=== PATIENT | male | born 2000 | race Native Hawaiian/Other Pacific Islander ===

== ENCOUNTER 2025-02-02 14:45 | Emergency (ER) | payer OTHER, SELFPAY ==
[2025-02-02 14:47] VITALS: BP 163/91; PULSE 113; RESP 16; TEMP 36.8; O2SAT 100; BMI 25.7
[2025-02-02 15:15] LABS: Basophils # 0.1 10^3/uL (0.0-0.1); Basophils % 0.8 %; Eosinophils # 0.1 10^3/uL (0.0-0.8); Eosinophils % 0.9 %; Hematocrit 48.6 % (37-53); Lymphocytes # 2.3 10^3/uL (0.8-4.8); Lymphocytes % 22.1 %; Mean Corpuscular HGB Conc 36.6 g/dL (30-55); Mean Corpuscular Hemoglobin 33.3 pg (27-33); Mean Platelet Volume 10.7 fL (7.4-10.4); Monocytes # 0.6 10^3/uL (0.2-0.9); Monocytes % 5.2 %; Neutrophils # 7.38 10^3/uL (1.8-7.7); Neutrophils % 70.1 %; Nucleated Red Blood Cells % 0 %; Platelet Count 299 10^3/cmm (157-399); Red Blood Count 5.34 10^6/uL (3.85-5.65); Red Cell Distribution Width 11.9 % (12.1-15.1); White Blood Count 10.52 10^3/uL (3.29-11.43)
--- NOTE | 2025-02-02 15:29 | CTR_ITS ---
PROCEDURE INFORMATION: Exam: CT Abdomen And Pelvis With Contrast Exam date and time: 02/02/2025 4:01 PM Age: 24 years old Clinical indication: Mass, lump, or swelling and vomiting; Generalized; Additional info: Abd pain TECHNIQUE: Imaging protocol: Computed tomography of the abdomen and pelvis with contrast. Radiation optimization: All CT scans at this facility use at least one of these dose optimization techniques: automated exposure control; mA and/or kV adjustment per patient size (includes targeted exams where dose is matched to clinical indication); or iterative reconstruction. Contrast material: OMNI 350; Contrast volume: 100 ml; Contrast route: INTRAVENOUS (IV); COMPARISON: No relevant prior studies available. RADIATION DOSE METRICS: Total DLP (mGy-cm): 516.11 FINDINGS: Lungs: Lung bases are clear. Liver: Normal. No mass. Gallbladder and biliary ducts: Normal. No calcified stones. No ductal dilation. Pancreas: Normal. No ductal dilation. Spleen: Normal. No splenomegaly. Adrenal glands: Normal. No mass. Kidneys and ureters: Presumed contrast within the bilateral renal collecting systems. No definitive nephrolithiasis. No evidence of hydronephrosis or obstructing ureteral calculus. The kidneys enhance normally. Stomach and bowel: No small or large bowel obstruction. Mild constipation. Appendix: The appendix is not definitively visualized however there are no secondary signs to suggest acute appendicitis. Intraperitoneal space: No intraperitoneal free air or fluid. Vasculature: The portal vein is patent. Lymph nodes: Unremarkable. No enlarged lymph nodes. Urinary bladder: Unremarkable as visualized. Reproductive: Unremarkable as visualized. Bones/joints: Unremarkable. No acute fracture. Soft tissues: Small fat containing umbilical hernia. CT/CT abdomen pelvis w con* [id number] IMPRESSION: No acute abnormality in the abdomen and pelvis.
--- NOTE | 2025-02-02 15:30 | ED_ITS ---
HPI - Nausea/Vomiting/Diarrhea 2 General: Chief complaint: Nausea/Vomiting/Diarrhea Stated complaint: abd pain, n/v/d/f Time Seen by Provider: 02/02/25 15:01 Source: patient Mode of arrival: ambulatory Limitations: no limitations History of Present Illness: 24-year-old male states that over the la st 2 to 3 weeks he has been having increasing abdominal pain as well as been having some vomiting diarrhea since he had had labs drawn and they were normal and was scheduled for outpatient ultrasound of his gallbladder but had worsening pain today states pain is diffuse in nature rates an 8 out of 10 denies any worse improved factors Associated nausea: Yes Associated symtoms: Reports nausea; Denies chest pain, dysuria or headache(s) Related Data Previous Rx's ?Medication ?Instructions ?Recorded dicyclomine 20 mg tablet 20 mg PO TID PRN abdominal p ain 02/02/25 #20 tabs ondansetron 4 mg disintegrating 4 mg PO Q6H PRN nausea and 02/02/25 tablet vomiting #14 tabs Allergies Allergy/AdvReac Type Severity Reaction Status Date / Time No Known Allergies Allergy Verified 02/02/25 14:54 Review of Systems 2 Const: Denies: fever(s), chills, body aches or change in appetite ENMT: Denies: throat pain or dental pain Card: Denies: chest pain Resp: Denies: dyspnea GI: Reports: abdominal pain, nausea, vomiting and diarrhea : Denies: dysuria Musc: Denies: neck pain or back pain Skin/Breast: Denies: rash Neuro: Denies: headache(s) Physical Exam 2 Const: COMMON NORMALS: no acute distress, patient oriented x3 and healthy appearing HENMT: COMMON NORMALS: normocephalic and atraumatic HEAD & SCALP: n ormocephalic and atraumatic Neck/C-Spine: COMMON NORMALS: full ROM and supple Chest: COMMONS NORMALS: normal inspection of the chest Resp: COMMON NORMALS: normal respiratory effort, No retractions, No use of accessory muscles and clear to auscultation bilaterally AUSCULTATION: clear to auscultation bilaterally Cardio: COMMON NORMALS: regular rate, regular rhythm and No murmurs present (Cardio) RATE: regular rate RHYTHM: regular rhythm GI: COMMON NORMALS: Normal to inspection, nondistended, normoactive bowel sounds present, Soft to palpation and no masses PALPATION: Yes Soft to palpation OTHER: diffuse tenderness Extremity: COMMON NORMALS: normal to inspection and full ROM Neuro: COMMON NORMALS: patient oriented x3, moves all extremities and no focal motor deficits Psych: COMMON NORMALS: mental status grossly normal, Normal thought process present and cooperative THOUGHT PROCESS: Normal thought process present Skin: COMMON NORMALS: no rashes or lesions noted and no wounds GENERAL SKIN EXAM: no rashes or lesions noted Course 2 Vital Signs: Vital signs: Vital Signs Temperature 98.3 F 02/02/25 14:47 Pulse Rate 113 H 02/02/25 14:47 Respiratory Rate 14 02/02/25 16:45 Blood Pressure 127/77 02/02/25 16:45 Pulse Oximetry 97 02/02/25 16:45 Oxygen Delivery Me thod Room Air 02/02/25 16:45 MDM - Nausea/Vomiting/Diarrhea Medical Decision Making Patient presents with abdominal pain nausea vomiting blood work CT scan are normal he feels improved here after fluids and meds will prescribe him Bentyl along with Zofran he has follow-up with PCP and return if worsening. Medical Records I reviewed the patient's medical records. Lab Data I reviewed the patient's lab results. 02/02/25 15:09 02/02/25 15:09 Radiology Impressions Abdomen/Pelvis CT 02/02/25 15:29 IMPRESSION: No acute abnormality in the abdomen and pelvis. Laboratory Results WBC 10.52 10^3/uL (3.29-11.43) 02/02/25 15:09 RBC 5.34 10^6/uL (3.85-5.65) 02/02/25 15:09 Hgb 17.80 g/dL (11.27-16.99) H 02/02/25 15:09 Hct 48.6 % (37-53) 02/02/25 15:09 MCV 91.0 fl (82-101) 02/02/25 15:09 MCH 33.3 pg (27-33) H 02/02/25 15:09 MCHC 36.6 g/dL (30-55) 02/02/25 15:09 RDW 11.9 % (12.1-15.1) L 02/02/25 15:09 Plt Count 299 10^3/cmm (157-399) 02/02/25 15:09 MPV 10.7 fL (7.4-10.4) H 02/02/25 15:09 Neut % (Auto) 70.1 % 02/02/25 15:09 Lymph % (Auto) 22.1 % 02/02/25 15:09 [place] % (Auto) 5.2 % 02/02/25 15:09 Eos % (Auto) 0.9 % 02/02/25 15:09 Baso % (Auto) 0.8 % 02/02/25 15:09 Neut # (Auto) 7.38 10^3/uL (1.8-7.7) 02/02/25 15:09 Lymph # (Auto) 2.3 10^3/uL (0.8-4.8) 02/02/25 15:09 [place] # (Auto) 0.6 10^3/uL (0.2-0.9) 02/02/25 15:09 Eos # (Auto) 0.1 10^3/uL (0.0-0.8) 02/02/25 15:09 Baso # (Auto) 0.1 10^3/uL (0.0-0.1) 02/02/25 15:09 Nucleated RBC % (auto) 0 % 02/02/25 15:09 Nucleated RBCs # 0.0 /100WBC 02/02/25 15:09 Sodium 139 mmol/L (136-145) 02/02/25 15:09 Potassium 3.4 mmol/L (3.5-5.1) L 02/02/25 15:09 Chloride 104 mmol/L (98-107) 02/02/25 15:09 Carbon Dioxide 17 mmol/L (22-29) L 02/02/25 15:09 Anion Gap 21.4 (5-19) H 02/02/25 15:09 BUN 16 mg/dL (6-20) 02/02/25 15:09 Creatinine 1.0 mg/dL (0.7-1.2) 02/02/25 15:09 GFR Calculation 91.8 mL/min (90-130) 02/02/25 15:09 Glucose 220 mg/dL (65-115) H 02/02/25 15:09 Calculated Osmolality 296 mOsm/kg (285-295) H 02/02/25 15:09 Calcium 9.6 mg/dL (8.5-10.5) 02/02/25 15:09 Total Bilirubin 0.7 mg/dL (0.15-1.2) 02/02/25 15:09 AST 14 U/L (0-40) 02/02/25 15:09 ALT 19 U/L (0-41) 02/02/25 15:09 Alkaline Phosphatase 75 U/L (40-130) 02/02/25 15:09 Total Protein 7.2 g/dL (6.6-8.7) 02/02/25 15:09 Albumin 4.8 g/dL (3.5-5.2) 02/02/25 15:09 Globulin 2.4 g/dL (1.3-4.6) 02/02/25 15:09 Lipase 46 U/L (13-60) 02/02/25 15:09 Urine Color Yellow (Yellow) 02/02/25 15:43 Urine Appearance Clear (CLEAR) 02/02/25 15:43 Urine pH 7.5 (5-7) 02/02/25 15:43 Ur Specific [place] 1.019 (1.005-1.030) 02/02/25 15:43 Urine Protein Negative (Negative) 02/02/25 15:43 Urine Glucose (UA) 3+ (Normal) H 02/02/25 15:43 Urine Ketones 1+ (Negative) H 02/02/25 15:43 Urine Blood Negative (Negative) 02/02/25 15:43 Urine Nitrate Negative (Negative) 02/02/25 15:43 Urine Bilirubin Negative (Negative) 02/02/25 15:43 Urine Urobilinogen 1.0 mg/dL (Negative) 02/02/25 15:43 Ur Leukocyte Esterase Negative (Negative) 02/02/25 15:43 Urine RBC 0-2 /hpf (0-2) 02/02/25 15:43 Urine WBC 0-5 /hpf (0-5) 02/02/25 15:43 Ur Squamous Epith Cells 0-5 /hpf (0-5) 02/02/25 15:43 Amorphous Sediment Not Reportable 02/02/25 15:43 Urine Bacteria None seen /hpf (NONE) 02/02/25 15:43 Hyaline Casts 0-4 /lpf H 02/02/25 15:43 All radiology interpretation(s) finalized by discharge Discharge Plan Discharge Patient Disposition: Home Clinical Impression: Vomiting, Abdominal pain Condition: Stable Prescriptions: New ondansetron 4 mg tablet,disintegrating 4 mg PO Q6H PRN (Reason: nausea and vomiting) Qty: 14 0RF dicyclomine 20 mg tablet 20 mg PO TID PRN (Reason: abdominal pain) Qty: 20 0RF Discharge Orders: Discharge ED (Routine); Ordered 02/02/25 Ordered By: Kiana Baxter Discharge Diet: Advance as tolerated Discharge Activity: Resume usual activity Patient Instructions: Acute Nausea and Vomiting (ED), Abdominal Pain (ED) Print Language: Palauan Coding Level of Care Code ED Cut Order Hand for Radha Gonzalez
[2025-02-02 15:32] LABS: Albumin Level 4.8 g/dL (3.5-5.2); Alkaline Phosphatase 75 U/L (40-130); Anion Gap 21.4 (5-19); Blood Urea Nitrogen 16 mg/dL (6-20); Calcium 9.6 mg/dL (8.5-10.5); Carbon Dioxide 17 mmol/L (22-29); Chloride 104 mmol/L (98-107); Creatinine Clr Calc Pharmacy 126.8686; Globulin 2.4 g/dL (1.3-4.6); Glomerular Filtration Rate 91.8 mL/min (90-130); Glucose 220 mg/dL (65-115); Lipase 46 U/L (13-60); Osmolality Calculated 296 mOsm/kg (285-295); Potassium 3.4 mmol/L (3.5-5.1); Sodium 139 mmol/L (136-145); Total Bilirubin 0.7 mg/dL (0.15-1.2); Total Protein 7.2 g/dL (6.6-8.7)
[2025-02-02 15:35] LABS: Alanine Aminotransferase 19 U/L (0-41); Aspartate Amino Transferase 14 U/L (0-40)
[2025-02-02] MEDS: sodium chloride 0.9% 1,000 ML 999 ML IV ×2 (15:36→15:56)
[2025-02-02] MEDS: ondansetron 2 mg/ML SDV 2 mL 4 MG IVP (15:37)
[2025-02-02] MEDS: HYDROmorphone 0.5 MG/0.5 ML INJ 1 MG IVP (15:39)
[2025-02-02 15:51] LABS: Bilirubin Urine Negative (Negative); Blood Urine Negative (Negative); Glucose Urine UA 3+ (Normal); Ketones Urine 1+ (Negative); Leukocyte Esterase Urine Negative (Negative); Nitrate Urine Negative (Negative); Protein Urine Negative (Negative); Specific Gravity, Urine 1.019 (1.005-1.030); Urine Appearance Clear (CLEAR); Urine Color Yellow (Yellow); pH Urine 7.5 (5-7)
[2025-02-02 15:56] LABS: Add Urine Microscopic? YES; Bacteria Urine None Seen /hpf; Hyaline Casts Urine 0-4 /lpf; RBC Urine 0-2 /hpf (0-2); Squamous Epithelial Cell Urine 0-5 /hpf (0-5); WBC Urine 0-5 /hpf (0-5)
[2025-02-02] MEDS: iohexol 350 mg/mL 500 mL Btl (per mL) IV (16:03)
[2025-02-02 16:45] VITALS: BP 127/77; RESP 14; O2SAT 97
[2025-02-02 17:43] VITALS: BP 129/68; PULSE 77; O2SAT 100
== END 2025-02-02 17:48 | disposition home or self-care (01) ==
PROVIDERS: Emergency Provider Emergency Medicine
DX: R11.10 Vomiting, unspecified (principal); R10.9 Unspecified abdominal pain
CPT/HCPCS: 36415; 74177; 80053; 81001; 83690; 85025; 96361; 96374; 96375; 99285; J1171; J2405; J7030

== ENCOUNTER 2025-02-08 13:10 | Outpatient (CLI) | payer OTHER, SELFPAY | END 2025-02-08 13:11 | disposition home or self-care (01) | PROVIDERS: PCP Nurse Practitioner Family; Visit Provider Nurse Practitioner Family | DX: R19.7 Diarrhea, unspecified (principal) | CPT/HCPCS: 87045; 87328; 87329; 87427; 87449 ==